=== PATIENT | female | born 1995 | race African-American/Black ===

== ENCOUNTER 2023-06-02 12:05 | Outpatient (REF) | payer MEDICAID, SELFPAY ==
[2023-06-02 15:07] LABS: Alanine Aminotransferase 10 U/L (0-31); Albumin Level 4.3 g/dL (3.5-5.0); Alkaline Phosphatase 46 U/L (39-117); Aspartate Amino Transferase 19 U/L (5-31); Bilirubin Direct 0.2 mg/dL (0.0-0.5); Bilirubin Total 0.9 mg/dL (0.0-1.0); Gamma Glutamyl Transpeptidase 16 U/L (7-33); Iron 65 mcg/dL (30-160); Percent Iron Saturation 24 % (15-50); Total Iron Binding Capacity 270 mcg/dL (228-428); Total Protein 7.3 g/dL (6.5-8.0); Unsaturated Iron Binding 205 ug/dL
[2023-06-04 21:58] LABS: Cytomegalovirus Ab IgG >10.00 U/mL; Cytomegalovirus Ab IgM <30.00 AU/mL; EBV-VCA IgM Ab <36.00 U/mL
[2023-06-08 15:39] LABS: Anti Nuclear Antibody Screen POSITIVE (NEGATIVE); Anti Nuclear Antibody Titer 1:40 titer
[2023-06-09 07:33] LABS: Smooth Muscle Antibody <20 U (<20)
== END 2023-06-02 12:06 | disposition home or self-care (01) ==
LOC: HO.CHCLDS 12:05
PROVIDERS: Visit Provider Pediatrics
DX: R74.01 Elevation of levels of liver transaminase levels (principal)
CPT/HCPCS: 36415; 80076; 82977; 83540; 86015; 86038; 86039; 86644; 86645; 86664; 86665